=== PATIENT | female | born 1955 | race Caucasian/White ===

== ENCOUNTER 2019-11-08 08:31 | Emergency (ER) | payer OTHER ==
[~2019-11-08] VITALS: Ht 160 cm; Wt 63.5 kg
[~2019-11-08 08:31] MED LIST: CLONAZEPAM2 MG; ROXICODONE5 MG
[2019-11-08] MEDS ORDERED: PERCOCET 5-3251 EACH PO (11:43)
== END 2019-11-08 12:46 | disposition home or self-care (01) ==
LOC: ER 08:31
DX: S42.291A Other displaced fracture of upper end of right humerus, initial encounter for closed fracture (principal); W18.39XA Other fall on same level, initial encounter; Y93.89 Activity, other specified; Y92.89 Other specified places as the place of occurrence of the external cause; Y99.8 Other external cause status